=== PATIENT | female | born 1985 | race Caucasian/White ===

== ENCOUNTER 2018-04-27 15:36 | Inpatient (IN) | payer OTHER ==
[~2018-04-27] VITALS: Ht 154.9 cm; Wt 62.6 kg
[~2018-04-27 15:36] MED LIST: IBUPROFEN800 M1 PO
--- NOTE | 2018-04-27 16:30 | History & Physical ---
General Information and HPI MD Statement: I have seen and personally examined ROSETTE SHAIKH and documented this H&P. The patient is a 32 year old female at [38] weeks and [5] days gestation who presented with a chief complaint of [ctxs]. Source of Information: patient Exam Limitations: no limitations History of Present Illness: 32yo, , 38 5/7wks, c/o ctx since AM, getting stronger, came in for evaluation. she denies VB or LOF, reports GFM. acre started at 9+ wks. 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 Last Menstrual Period: 07/23/2017 Estimated Delivery Date: 05/06/2018 Past solar sales associate History: non-contributory, infertility, SAB x 2, Past Pregnancies Past Pregnancies: Date of Delivery: 07/19/2016 Gestational Age: 39 wks Weight: 6lb5oz Type of Delivery: vaginal (vaccum assisted) Anesthesia: epidural Complications: none Medical History Neurological: NONE EENT: NONE Cardiovascular: NONE Respiratory: NONE Gastrointestinal: NONE Hepatic: NONE Renal: NONE Psychiatric: NONE Endocrine: thyroid disease, elevated 1 hr, nl 3hr Blood Disorders: NONE Cancer(s): NONE HALL [employer]ER/Reproductive: miscarriage, sab x 2, conceived with clomid and metformin Surgical History Pertinent Surgical History: none Past Family/Social History Psychosocial History Smoking Status: Never Smoked ETOH Use: denies use Illicit Drug Use: denies illicit drug use Review of Systems Review of Systems Constitutional: Reports: no symptoms. EENTM: Reports: no symptoms. Cardiovascular: Reports: no symptoms. Respiratory: Reports: no symptoms. GI: Reports: no symptoms. Genitourinary: Reports: see HPI. Musculoskeletal: Reports: no symptoms. Skin: Reports: no symptoms. Neurological/Psychological: Reports: no symptoms. Hematologic/Endocrine: Reports: no symptoms. Immunologic/Allergic: Reports: no symptoms. All Other Systems: Reviewed and Negative Exam & Diagnostic Data Obstetric Exam Wgt Gained During : 28lbs Pelvimetry: adequate Dilation (cm): 7 Effacement (%): 90 Station: -1 Membranes: intact Fluid: unknown Fundal Height (cm): 38 Multiple Gestation? No Contractions: q 5-6 min Infant #1 - FHR Baseline: 120 Category: 1 Estimated Weight: 3200g Presentation: vertex Patient for Induction? No Physical Exam: VSS General: N AD Abdomen: gravid, soft, nontender. Ext: DCT (-) Labs Blood Type & Rh: A positive Antibody Screen: negative Hct/Hgb & Platelets #1: 12.1/37.6%,PLT 533488 Hct/Hgb & Platelets #2: 11.8/37.5%,PLT 396393 Rubella: immune VDRL #1: negative VDRL #2: negative HbsAg: negative HIV #1: negative HIV #2 negative 1 Hr P Group B Strep: positive Initial Ultrasound: IUP at 8 4/7wks Anatomy Ultrasound: nl. Genetic Testing: nl Last 24 Hrs of Labs/Sergio: Laboratory Tests 04/27/18 1615: CBC w Diff NO MAN DIFF REQ, RBC 3.79 L, MCV 94.4, MCH 31.9 H, MCHC 33.7, RDW 13.6, MPV 8.3, Gran % 67.2, Lymphocytes % 19.3 L, Monocytes % 12.9 H, Eosinophils % 0.2, Basophils % 0.4, Absolute Granulocytes 6.2, Absolute Lymphocytes 1.8, Absolute Monocytes 1.2 H, Absolute Eosinophils 0, Absolute Basophils 0, Urine Color YEL, Urine Clarity CLEAR, Urine pH 7.5, Ur Specific Ayer 1.010, Urine Protein NEG, Urine Ketones NEG, Urine Nitrite NEG, Urine Bilirubin NEG, Urine Urobilinogen 0.2, Ur Leukocyte Esterase TRACE H, Ur Microscopic SEDIMENT EXAMINED, Urine WBC RARE, Ur Epithelial Cells RARE, Urine Bacteria MOD H, Urine Hemoglobin NEG, Urine Glucose NEG Microbiology 04/27 1855 URINE ROUT: Urine Culture - RECD Assessment/Plan Assessment/Plan: 32yo, 38 5/7wks, labor 1. admit pt, admission labs 2. PCN for GBS prophylaxis 3. painmanagement as needed 4. moniotor closely As Ranked By This Provider Problem List: 1. Core Measures Venous Thromboembolism VTE Risk Factors / No Mechanical VTE Prophylaxis d/t LowRisk-No Interven Req'd No VTE Pharm Prophylaxis d/t LowRisk-No Interven Beth'katy Attending MD Review Statement Attending Statement Attending MD Statement: examined this patient, discussed with family, discussed w/nursing
[2018-04-27 16:45] LABS: ABSOLUTE BASOPHIL COUNT 0 /CUMM (0.0-0.2); ABSOLUTE EOSINOPHIL COUNT 0 /CUMM (0.0-0.7); ABSOLUTE GRANULOCYTE CT 6.2 /CUMM (1.4-6.5); ABSOLUTE LYMPH COUNT 1.8 /CUMM (1.2-3.4); ABSOLUTE MONOCYTE COUNT 1.2 /CUMM (0.10-0.60); BASOPHIL % 0.4 % (0.0-2.0); EOSINOPHIL % 0.2 % (0-5); GRANULOCYTE % 67.2 % (42.2-75.2); HEMATOCRIT 35.8 % (37-47); MEAN CORPUSCULAR HGB 31.9 PG (27.0-31.0); MEAN CORPUSCULAR HGB CONC 33.7 G/DL (33.0-37.0); MEAN CORPUSCULAR VOLUME 94.4 FL (81.0-99.0); MEAN PLATELET VOLUME 8.3 FL (7.4-10.4); PLATELET COUNT 294 /CUMM (130-400); RBC DISTRIBUTION WIDTH 13.6 % (11.5-14.5); RED BLOOD CELL CT 3.79 /CUMM (4.20-5.40); WHITE BLOOD CELL COUNT 9.3 /CUMM (4.8-10.8)
--- NOTE | 2018-04-27 21:42 | Labor & Delivery Summary ---
Delivery Summary Vaginal Delivery: Vaginal: vertex Episiotomy/Lacerations: Type: 2ND DEGREE Repair: 3-0 VICRYL Anesthesia: EPIDURAL Placenta: Placenta: spontanteous, normal, 3 vessel Anesthesia: EPIDURAL Baby's Weight: 3030G Apgars - 1 Min: 9 Apgars - 5 Min: 9 Additional Comments: Patient fully dilated, pushed well, spontaneously delivered a viable female infant in cephalic presentation, LEYDA position, head delivered atraumatically, followed by shoulder and rest of the body without difficulties, baby vigorous and cried, place on mother's chest, nose and mouth was suctioned with the suction bulb, cord clamp and cut. Placenta delivered spontaneously, intact , three-vessel cord. Second-degree laceration repaired with 3-0 Vicryl using standard technique. EBL 400 mL. Patient tolerated the procedure well, laps, instruments and needle counts were correct, patient in recovery room in stable condition.
[2018-04-28 07:23] LABS: ABSOLUTE BASOPHIL COUNT 0 /CUMM (0.0-0.2); ABSOLUTE EOSINOPHIL COUNT 0 /CUMM (0.0-0.7); ABSOLUTE GRANULOCYTE CT 8.3 /CUMM (1.4-6.5); ABSOLUTE LYMPH COUNT 1.8 /CUMM (1.2-3.4); ABSOLUTE MONOCYTE COUNT 1.2 /CUMM (0.10-0.60); BASOPHIL % 0.2 % (0.0-2.0); EOSINOPHIL % 0.1 % (0-5); GRANULOCYTE % 72.7 % (42.2-75.2); HEMATOCRIT 35.1 % (37-47); MEAN CORPUSCULAR HGB 31.8 PG (27.0-31.0); MEAN CORPUSCULAR HGB CONC 33.8 G/DL (33.0-37.0); MEAN CORPUSCULAR VOLUME 94.2 FL (81.0-99.0); MEAN PLATELET VOLUME 8.2 FL (7.4-10.4); PLATELET COUNT 269 /CUMM (130-400); RBC DISTRIBUTION WIDTH 13.4 % (11.5-14.5); RED BLOOD CELL CT 3.73 /CUMM (4.20-5.40); WHITE BLOOD CELL COUNT 11.5 /CUMM (4.8-10.8)
--- NOTE | 2018-04-28 09:58 | PN- OBGYN ---
Surgical Brief Attending Note Brief Attending Note: PPD#1 pt is resting in bed, no cpmplaints, tolerate diet, void without difficulties. ambulating well PE: VSS Cv RRR Lungs CTA B/L Abdomen; soft, nontender, uterus firm, fundus below umbilicus, lochia mild Ext: DCT (-) A/P: 32 yo, s/p , PPD#1 1. encourage ambulation and 2. pain management as needed 3. RT PP care
[2018-04-29] MEDS ORDERED: IBUPROFEN800 M1 PO (09:05)
--- NOTE | 2018-04-29 09:44 | PN- OBGYN ---
Surgical Brief Attending Note Brief Attending Note: PPD#2 pt is ambulating, doing well, no complaints PE: VSS CV RRR Lungs CTA B/L Abdomen: soft, nontender, uterus firm, fundus below umbilicus. lochia mild Ext: DCT (-) A/P: 32 yo, s/p , PPD#2 1. encourage ambulation and . 2. will d/c home, f/u in office in 2wks and 6 wks. discharge instructions given. she undertsand.
== END 2018-04-29 11:35 | DRG 775 ==
LOC: CBCO 15:36 → GNO 16:07
PROVIDERS: Obstetrics & Gynecology
PROC: 0KQM0ZZ Repair Perineum Muscle, Open Approach (ICD-10-PCS; principal; 2018-04-27)
PROC: 10E0XZZ Delivery of Products of Conception, External Approach (ICD-10-PCS; principal; 2018-04-27)
DX: O70.1 Second degree perineal laceration during delivery (principal); Z37.0 Single live birth; Z3A.38 38 weeks gestation of pregnancy; O99.824 Streptococcus B carrier state complicating childbirth
CPT/HCPCS: GNOS; 36415; 81001; 87086; J7120